=== PATIENT | female | born 1985 | race Caucasian/White ===

== ENCOUNTER 2019-07-19 09:12 | Inpatient (IN) | payer BC ==
[~2019-07-19] VITALS: Ht 292.1 cm; Wt 60.7 kg
[2019-07-19] MEDS ORDERED: LORazepam 1 MG tablet PO PRN (10:30)
[2019-07-19] MEDS ORDERED: acetaminophen 325mg tablet PO PRN ×2 (10:30)
[2019-07-19] MEDS ORDERED: loperamide 2mg capsule PO PRN (10:30)
[2019-07-19] MEDS ORDERED: mag hydrox/Alum hydrox/simeth 30ml oral suspension PO PRN (10:30)
[2019-07-19] MEDS ORDERED: magnesium hydroxide 30ml (MOM) UD suspension PO PRN (10:30)
[2019-07-19] MEDS ORDERED: ZOLP5TAB8 PO (10:54)
[2019-07-19] MEDS ORDERED: TRAZ-251 PO (10:54)
[2019-07-19] MEDS ORDERED: CITA20TA28 PO (10:54)
[2019-07-19] MEDS ORDERED: zolpidem 5mg tablet PO PRN (11:40)
--- NOTE | 2019-07-19 11:50 | NUR ---
Admission note: Pt admitted to [facility] for behavioral health on a 5150 for DTS at [address] [facility] in [facility]. . Pt was on the way from home in [facility] to [place] when pt threatened to jump out of the car. Pt was then transported via ambulance and pt again threatened to jump out of the ambulance. Pt accepted by Dr Reyes and pt made it here without jumping from vehicle. Pt had a baby one year ago and has been diagnosed with post depression. Pt also diagnosed with PTSD. Pt made a statement "I want to . Please kill me." Pt has been religiously preoccupied and upon arrival states she wants to go to [place]. Pt had not slept for 5 days at home but did sleep at [facility]'s ER after a B52.
[2019-07-19 12:30] VITALS: BP 129/83
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
[2019-07-19 20:00] VITALS: BP 132/84
[2019-07-19] MEDS ORDERED: traZODone 50mg tablet PO SCH (21:00)
--- NOTE | 2019-07-19 23:53 | NUR ---
Nursing Progress Note: Legal hold:5150 Client on involuntary status for DTS Report received from Rigoberto RICHARDSON with use of SBAR. Why are they here: [facility] for DTS from [facility] in [facility]. . Pt was on the way from home in [place] to [place] when pt threatened to jump out of the car. Pt was then transported via ambulance and pt again threatened to jump out of the ambulance. Pt made it here without jumping from vehicle. Pt had a baby one year ago and has been diagnosed with post depression. Pt also diagnosed with PTSD. Pt made a statement "I want to . Please kill me." Pt has been religiously preoccupied and upon arrival states she wants to go to [place]. Pt had not slept for 5 days at home but did sleep at [facility]'s ER after a B52. Assessment What has happened this shift:Pt in bed asleep at start of shift. Pt's Father came to visit. Pt and father in group room talking and smiling. Spent probably half of an hour in prayer at times holding hands. 1:1 pt speech very soft, she is guarded at times. Pt answers many questions with I don't remember. She asked when she will be able to go home and may be minimizing symptoms because she wants to go home. Denies SI. Pt has long history of anxiety and depression. She said she was obtained treatment and medications for the first time after the of her now 13 year old daughter triggered post depression. Pt believes stopping breast feeding her 18 month old daughter triggered this episode. S/I, H/I: denies A/VH: Denies at this time pt reports hearing voices before her admit Sleep: Pt sleeping at this time ADL's: Independent Group attendance: NA Were meds taken: Yes Any med S/E Mental Status Exam Appearance: Young attractive well groomed Eye contact: fair Behavior: cooperative Speech:normal rate low volume Mood: Pt denied depression Affect: depressed Thought process: Linear Thought Content: wants to go home Cognition:good Insight: poor Judgment: poor Interventions PRN's used: Ambien Therapeutic interventions: 1:1 assessment, medication administration/monitoring/education, active listening, therapeutic conversation with positive reinforcement, Q 15min safety checks. Restraints/seclusion/emergency medication: N/A Justification of Continued Inpatient Treatment: Continued therapeutic support and medication management needed to provide stabilization, prevent decompensation, and improve coping mechanisms decreasing risk to patient and re-admittance. Patient has a home where she lives with her and children
[2019-07-20 07:00] VITALS: BP 122/80
[2019-07-20] MEDS ORDERED: citalopram 20mg tablet PO SCH (08:00)
--- NOTE | 2019-07-20 13:23 | NUR ---
PHONE CALL TO Attempted to reach Ct's (release on file), Cy (ph# [phone]), to gather additional information. He was not home and apparently does not have a cell #. ZENOBIA Kenney
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
[2019-07-20 14:54] LABS: CHOLESTEROL 132 MG/DL (0-200); HDL CHOLESTEROL 67 MG/DL (35-60); LDL CHOLESTEROL 49 MG/DL (50-100); TRIGLYCERIDES 61 MG/DL (20-135)
--- NOTE | 2019-07-20 15:41 | NUR ---
Nursing Progress Note: DEANDRE Legal hold:5150 Client on involuntary status for DTS Report received from DYLAN Yo with use of SBAR. Why are they here: Pt admitted to [facility] for behavioral health on a 5150 for DTS from [facility] in [facility]. . Pt was on the way from home in [place] to [place] when pt threatened to jump out of the car. Pt was then transported via ambulance and pt again threatened to jump out of the ambulance. Pt made it here without jumping from vehicle. Pt had a baby one year ago and has been diagnosed with post depression. Pt also diagnosed with PTSD. Pt made a statement "I want to . Please kill me." Pt has been religiously preoccupied and upon arrival states she wants to go to [place]. Pt had not slept for 5 days at home but did sleep at [facility]'s ER after a B52. Assessment What has happened this shift: Pt in bed asleep at start of shift. Pt's Father came to AM visit. 1:1 pt speech soft and she is guarded during questioning. Denies SI but does endorse depression and anxiety. She reports her anxiety is 8/10 out of a 1-10 scoring system. Pt has long history of anxiety and depression. Pt reports that she has taken Celexa in the past and that it worked well for her. She denies any SEs to medications at this time. Reports her last BM was this morning. Pt isolates to her room a majority of the day, at times is found reading her Bible. S/I, H/I: denies A/VH: denies at this time Sleep: 8.5hrs NOC ADL's: Independent Group attendance: Were meds taken: Yes Any med S/E Mental Status Exam Appearance: Well groomed, green scrubs Eye contact: Direct Behavior: cooperative Speech: normal rate, soft, normal rhythm Mood: endorses depression and anxiety Affect: depressed Thought process: Linear Thought Content: question oriented Cognition: A & O X4 Insight: poor Judgment: poor Interventions PRN's used: Therapeutic interventions: 1:1 assessment, medication administration/monitoring/education, active listening, therapeutic conversation with positive reinforcement, Q 15min safety checks. Restraints/seclusion/emergency medication: N/A Justification of Continued Inpatient Treatment: Continued therapeutic support and medication management needed to provide stabilization, prevent decompensation, and improve coping mechanisms decreasing risk to patient and re-admittance. Patient has a home where she lives with her and children.
[2019-07-20 20:00] VITALS: BP 127/81
[2019-07-20] MEDS: docusate sod 100mg capsule PO SCH (20:41)
[2019-07-20] MEDS: traZODone 50mg tablet PO SCH (20:41)
--- NOTE | 2019-07-20 22:21 | NUR ---
Nursing Progress Note: Legal hold: 5150 Exp 07/22 @ 1105 Client on involuntary status for DTS Report received from CARMELO Franklin with use of SBAR. Why are they here: Pt admitted to [facility] for behavioral health on a 5150 for DTS from [facility] in [facility]. . Pt was on the way from home in [place] to [place] when pt threatened to jump out of the car. Pt was then transported via ambulance and pt again threatened to jump out of the ambulance. Pt made it here without jumping from vehicle. Pt had a baby one year ago and has been diagnosed with post depression. Pt also diagnosed with PTSD. Pt made a statement "I want to . Please kill me." Pt has been religiously preoccupied and upon arrival states she wants to go to [place]. Pt had not slept for 5 days at home but did sleep at [facility]'s ER after a B52. Assessment What has happened this shift: Patient sitting in group room reading a book at shift change. This information writer introduces self and establishes rapport. Pt is guarded and it is difficult to strike up conversation. Pt answers RN's questions, but doesn't elaborate. When asked how patient is feeling pt reports "I am feeling a little anxious." Reports 12/28. Pt refused PRN. Pt relates her incident to "Post depression." Pt states she had with her first child too." Pt states "I am feeling a lot better then when I first came in." Pt presents with a flat affect, no emotion shown during conversation. Pt's father came into visit and states "It was a good visit." Pt reports she has a good relationship with him. S/I, H/I: Pt denies, none observed. A/VH: Pt denies, none observed. Sleep: Currently sleeping. Trazadone 100mg administered. Refer to Sleep Assessment for total hours. 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 Were meds taken: Took medications without incident. Any med S/E: None reported or observed. Mental Status Exam Appearance: Well groomed, wearing own clothes Eye contact: Good Behavior: Cooperative, guarded, anxious Speech: Soft, audible, quiet Mood: "I feel a lot better than when I came in." Affect: Blunted Thought process: Linear Thought Content: Pt answered RN questions only Cognition: A & O X4 Insight: Poor Judgment: Poor Interventions PRN's used: None Therapeutic interventions: 1:1 assessment, medication administration/monitoring/education, active listening, therapeutic conversation with positive reinforcement, Q 15min safety checks. Restraints/seclusion/emergency medication: N/A Justification of Continued Inpatient Treatment: Continued therapeutic support and medication management needed to provide stabilization, prevent decompensation, and improve coping mechanisms decreasing risk to patient and re-admittance. Patient has a home where she lives with her and children.
[2019-07-21] MEDS: citalopram 20mg tablet PO SCH (07:48)
[2019-07-21] MEDS: docusate sod 100mg capsule PO SCH ×2 (07:48→20:00)
[2019-07-21 08:17] VITALS: BP 106/70
--- NOTE | 2019-07-21 14:52 | NUR ---
Nursing Progress Note: DEANDRE Legal hold:5150 Client on involuntary status for DTS Report received from DYLAN Yo with use of SBAR. Why are they here: Pt admitted to [facility] for behavioral health on a 5150 for DTS from [facility] in [facility]. . Pt was on the way from home in [place] to [place] when pt threatened to jump out of the car. Pt was then transported via ambulance and pt again threatened to jump out of the ambulance. Pt made it here without jumping from vehicle. Pt had a baby one year ago and has been diagnosed with post depression. Pt also diagnosed with PTSD. Pt made a statement "I want to . Please kill me." Pt has been religiously preoccupied and upon arrival states she wants to go to [place]. Pt had not slept for 5 days at home but did sleep at [facility]'s ER after a B52. Assessment What has happened this shift: Pt in bed asleep at start of shift. Pt's Father came to AM visit. 1:1 pt speech soft and she appears more bright today. She reports feeling better today. Denies SI but does endorse depression and anxiety. She reports her anxiety is 6/10 out of a 1-10 scoring system and 2/10 for depression. Pt has long history of anxiety and depression. Pt reports that she feels the Celexa is working well. She denies any SEs to medications at this time. Pt isolates to her room a majority of the day, at times is found reading her Bible or uatsdin book. S/I, H/I: denies A/VH: denies at this time Sleep: 8.5 hrs NOC ADL's: Independent Group attendance: yes Were meds taken: Yes Any med S/E Mental Status Exam Appearance: Well groomed, green scrubs Eye contact: Direct Behavior: cooperative Speech: normal rate, soft, normal rhythm Mood: endorses depression and anxiety Affect: depressed Thought process: Linear Thought Content: question oriented Cognition: A & O X4 Insight: poor Judgment: poor Interventions PRN's used: Therapeutic interventions: 1:1 assessment, medication administration/monitoring/education, active listening, therapeutic conversation with positive reinforcement, Q 15min safety checks. Restraints/seclusion/emergency medication: N/A Justification of Continued Inpatient Treatment: Continued therapeutic support and medication management needed to provide stabilization, prevent decompensation, and improve coping mechanisms decreasing risk to patient and re-admittance. Patient has a home where she lives with her and children.
[2019-07-21 20:00] VITALS: BP 106/73
[2019-07-21] MEDS: traZODone 50mg tablet PO SCH (21:00)
[2019-07-21] MEDS: hydrOXYzine 25 MG tablet PO PRN (23:51)
--- NOTE | 2019-07-22 01:13 | NUR ---
Nursing Progress Note: Legal hold: 5150 Exp 07/22 @ 1105 Client on involuntary status for DTS Report received from CARMELO Espinoza with use of SBAR. Why are they here: Pt admitted to [facility] for behavioral health on a 5150 for DTS from [facility] in [facility]. . Pt was on the way from home in [place] to [place] when pt threatened to jump out of the car. Pt was then transported via ambulance and pt again threatened to jump out of the ambulance. Pt made it here without jumping from vehicle. Pt had a baby one year ago and has been diagnosed with post depression. Pt also diagnosed with PTSD. Pt made a statement "I want to . Please kill me." Pt has been religiously preoccupied and upon arrival states she wants to go to [place]. Pt had not slept for 5 days at home but did sleep at [facility]'s ER after a B52. Assessment What has happened this shift: Patient quietly sitting in group room at shift change reading her Bible. Pt reports she "is feeling better." Pt's affect is brighter then last night. Pt smiles during conversation. Pt states she may be discharged tomorrow when her 5150 is , but states "I may stay a little longer depending on how I feel." Pt is goal oriented and looking forward to seeing her children. Pt continues to report anxiety 5/10, but "getting better." Pt retired to be around 2100 after HS med pass. Pt woke up around 2345 stating she "woke up feeling anxious" and having trouble falling back to sleep. PRN Atarax was administered. Reassessed pt around 0030, pt sleeping comfortably, rr even and unlabored. S/I, H/I: Pt denies, none observed. A/VH: Pt denies, none observed. Sleep: Currently sleeping. Trazadone 100mg administered. Refer to Sleep Assessment for total hours. 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 Were meds taken: Took medications without issue. Any med S/E: None reported or observed. Mental Status Exam Appearance: Well groomed, wearing green unit scrubs. Eye contact: Good Behavior: Cooperative, guarded, slightly anxious Speech: Soft, audible, quiet Mood: "I feel a lot better than when I came in." Affect: A little brighter, occasional smiles. Thought process: Linear Thought Content: Feeling better Cognition: A & O X4 Insight: Fair Judgment: Fair Interventions PRN's used: None Therapeutic interventions: 1:1 assessment, medication administration/monitoring/education, active listening, therapeutic conversation with positive reinforcement, Q 15min safety checks. Restraints/seclusion/emergency medication: N/A Justification of Continued Inpatient Treatment: Continued therapeutic support and medication management needed to provide stabilization, prevent decompensation, and improve coping mechanisms decreasing risk to patient and re-admittance. Patient has a home where she lives with her and children.
--- NOTE | 2019-07-22 08:17 | NUR ---
DISCHARGE PLANNING Ct reported her dad can pick her up upon discharge and drive her home. Called [facility] and scheduled Ct a follow up provider with RAUDEL Hernandez, on 07/27/19 at 7:45 am. ZENOBIA Kenney
[2019-07-22 08:27] VITALS: BP 109/69
[2019-07-22] MEDS: citalopram 20mg tablet PO SCH (08:40)
[2019-07-22] MEDS: docusate sod 100mg capsule PO SCH ×2 (08:40→20:50)
--- NOTE | 2019-07-22 17:45 | NUR ---
Nursing Progress Note: Legal hold: Voluntary. Client on involuntary status for DTS Report received from CARMELO Yo with use of SBAR. Why are they here: Pt admitted to [facility] for behavioral health on a 5150 for DTS from [facility] in [facility]. . Pt was on the way from home in [place] to [place] when pt threatened to jump out of the car. Pt was then transported via ambulance and pt again threatened to jump out of the ambulance. Pt made it here without jumping from vehicle. Pt had a baby one year ago and has been diagnosed with post depression. Pt also diagnosed with PTSD. Pt made a statement "I want to . Please kill me." Pt has been religiously preoccupied and upon arrival states she wants to go to [place]. Pt had not slept for 5 days at home but did sleep at [facility]'s ER after a B52. Assessment What has happened this shift: Pt. asleep at start of shift. Pt. awake for breakfast and medications. Pt. ate all meals in community room and took all medications. Pt. appears depressed. Pt. denies SI/HI, A/V hallucinations. Pt. seen socializing with peers. Pt. reports she feels like she is getting better but feels like she needs to stay longer. Pt. reports she feels depressed about being away from her children. Pt. reports depression 01/27. Pt. reports that she had a suicide attempt 8 years ago after being placed on Prozac, pt. attempted by overdosing on Prozac. Pt. placed on a voluntary hold today. S/I, H/I: Pt denies A/VH: Pt denies Sleep: Pt. did not nap during day shift. ADL's: Independent Group attendance: Yes Were meds taken: Yes Any med S/E: None reported or observed. Mental Status Exam Appearance: Well groomed, wearing green unit scrubs. Eye contact: Good Behavior: Cooperative, guarded, withdrawn, social when approached Speech: Soft but audible Mood: better but continues to report depression. Affect: Brighter Thought process: Linear Thought Content: Concerned about children Cognition: A & O X4 Insight: Fair Judgment: Fair Interventions PRN's used: None Therapeutic interventions: 1:1 assessment, medication administration/monitoring/education, active listening, therapeutic conversation with positive reinforcement, Q 15min safety checks. Restraints/seclusion/emergency medication: N/A Justification of Continued Inpatient Treatment: Continued therapeutic support and medication management needed to provide stabilization, prevent decompensation, and improve coping mechanisms decreasing risk to patient and re-admittance. Patient has a home where she lives with her and children.
[2019-07-22 20:04] VITALS: BP 114/72
[2019-07-22] MEDS: traZODone 50mg tablet PO SCH (20:50)
--- NOTE | 2019-07-22 21:56 | NUR ---
Nursing Progress Note: Legal hold: Voluntary Client on voluntary status for DTS Report received from CARMELO Espinoza with use of SBAR. Why are they here: Pt admitted to [place] for behavioral health on a 5150 for DTS from [facility] in [facility]. . Pt was on the way from home in [place] to [place] when pt threatened to jump out of the car. Pt was then transported via ambulance and pt again threatened to jump out of the ambulance. Pt made it here without jumping from vehicle. Pt had a baby one year ago and has been diagnosed with post depression. Pt also diagnosed with PTSD. Pt made a statement "I want to . Please kill me." Pt has been religiously preoccupied and upon arrival states she wants to go to [place]. Pt had not slept for 5 days at home but did sleep at [facility]'s ER after a B52. Assessment What has happened this shift: Pt observed sitting in group room reading a book. Pt isolates to self. Pt's affect is improving each shift. Pt states "I feel more anxious then depressed." Reports anxiety 5/10. Pt wanted to wait for a PRN and took her HS medications instead. Will continue to monitor. Pt went voluntary status today, pt feels she is ready to go home, but feels she needs a couple of more days. Pt reports "feeling much better than when I first came in, but not as good as I could." Explained to pt it takes time for medication to build up in her system. Educated pt on the importance medication compliance after discharge. Pt misses her children. . S/I, H/I: Pt denies, none observed. A/VH: Pt denies, none observed. Sleep: Currently sleeping. Trazadone 100mg administered. Refer to Sleep Assessment for total hours. 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 Were meds taken: Took medications without issue. Any med S/E: None reported or observed. Mental Status Exam Appearance: Well groomed, wearing green unit scrubs. Eye contact: Good Behavior: Cooperative, guarded, slightly anxious Speech: Soft, audible, quiet Mood: "I feel a lot better than when I came in." Affect: Bright with occasional smiles. Thought process: Linear Thought Content: Missing her children Cognition: A & O X4 Insight: Fair Judgment: Fair Interventions PRN's used: None as of this writing. Therapeutic interventions: 1:1 assessment, medication administration/monitoring/education, active listening, therapeutic conversation with positive reinforcement, Q 15min safety checks. Restraints/seclusion/emergency medication: N/A Justification of Continued Inpatient Treatment: Continued therapeutic support and medication management needed to provide stabilization, prevent decompensation, and improve coping mechanisms decreasing risk to patient and re-admittance. Patient has a home where she lives with her and children. Addendum: 07/23/19 at 0312 by Cris Cast RN Pt woke around 2230 and requested PRN Atarax, pt woke feeling anxious. Administered with effect.
[2019-07-22] MEDS: hydrOXYzine 25 MG tablet PO PRN (22:24)
[2019-07-23 08:00] VITALS: BP 123/76
[2019-07-23] MEDS: docusate sod 100mg capsule PO SCH ×2 (08:24→21:16)
[2019-07-23] MEDS: citalopram 20mg tablet PO SCH (08:24)
--- NOTE | 2019-07-23 12:08 | NUR ---
Initial: Pt admit with psychosis. Pt on regular diet documented with average 75-100% PO intake meeting nutrient needs. LBM 07/21, receiving routine bowel care. No nutrition diagnosis at this time. Will continue to follow. Recommendations: 1) Continue regular diet 2) Routine bowel care 3) Weekly wts Addendum: 07/23/19 at [address] Amended: Links added.
--- NOTE | 2019-07-23 17:15 | NUR ---
Nursing Progress Note: Legal hold: Voluntary. Client on involuntary status for DTS Report received from CARMELO Lynch with use of SBAR. Why are they here: Pt admitted to [place] for behavioral health on a 5150 for DTS from [facility] in [facility]. . Pt was on the way from home in [place] to [place] when pt threatened to jump out of the car. Pt was then transported via ambulance and pt again threatened to jump out of the ambulance. Pt made it here without jumping from vehicle. Pt had a baby one year ago and has been diagnosed with post depression. Pt also diagnosed with PTSD. Pt made a statement "I want to . Please kill me." Pt has been religiously preoccupied and upon arrival states she wants to go to [place]. Pt had not slept for 5 days at home but did sleep at [facility]'s ER after a B52. Assessment What has happened this shift: Pt. asleep at start of shift. Pt. awake for breakfast and medications. Pt. ate all meals in community room and took all medications. 1:1 done at bedside. Pt. reports feeling more depressed today. Pt. asks, "what else can I do to help my depression". RN discussed benefits of therapy and pt. report she does not have a therapist at home but will look into it. Pt. denies SI/HI, A/V hallucinations. Pt. is social with other patients and staff. S/I, H/I: denies A/VH: denies Sleep: Pt. did not nap during day shift. ADL's: Independent Group attendance: Yes Were meds taken: Yes Any med S/E: None reported or observed. Mental Status Exam Appearance: Well groomed, wearing green unit scrubs and sweatshirt. Eye contact: Good Behavior: Cooperative, guarded, social when approached Speech: Soft, normal rate and rhythm. Mood: Reports increased depression today. Affect: Brighter Thought process: Linear Thought Content: Concerned about children Cognition: A & O X4 Insight: Fair Judgment: Fair Interventions PRN's used: None Therapeutic interventions: 1:1 assessment, medication administration/monitoring/education, active listening, therapeutic conversation with positive reinforcement, Q 15min safety checks. Restraints/seclusion/emergency medication: N/A Justification of Continued Inpatient Treatment: Continued therapeutic support and medication management needed to provide stabilization, prevent decompensation, and improve coping mechanisms decreasing risk to patient and re-admittance. Patient has a home where she lives with her and children.
[2019-07-23 19:00] VITALS: BP 128/79
[2019-07-23] MEDS ORDERED: traZODone 50mg tablet PO SCH (21:00)
--- NOTE | 2019-07-23 22:22 | NUR ---
Nursing Progress Note: Legal hold: Voluntary Client on voluntary DTS Report received from nurse with use of SBAR: CARMELO Bailey Why are they here: Pt admitted to [place] for behavioral health on a 5150 for DTS from [facility] in [facility]. . Pt was on the way from home in [place] to [place] when she threatened to jump out of the car. Pt was then transported via ambulance and she again threatened to jump out of the ambulance. Pt had a baby one year ago and has been diagnosed with post depression. She is also diagnosed with PTSD. Pt made a statement "I want to . Please kill me." She has been religiously preoccupied and upon arrival states she wants to go to [place]. Pt had not slept for 5 days at home. Assessment What has happened this shift: Pt. up sitting in the Group Room watching TV with others at the beginning of the shift, this expert medical writer introduces self and establishes rapport. Pt. presents as cooperative and pleasant, however is somewhat guarded and withdrawn. Pulse is initially elevated, but pt. denies any anxiety at this time, rechecked and was WNL. 1:1 completed later at bedside, pt. denies any S/I, PANG, and no delusional statements made. She does appear to continue to be somewhat religiously focused, and sits reading her bible in her room. When questioned by this expert medical writer, pt. admits to some lingering depression, however states, "It's a lot better, I feel like the medication is helping and being here has really helped." She reports that she feels ready to discharge tomorrow, plans to keep taking her medications, and follow-up with a psychiatry appointment on Friday at [facility]. Pt. also states, "Since I live out of town, I am also going to use the online therapy [facility] called [facility]." S/I, H/I: Denies A/VH: Denies, does not appear internally preoccupied Sleep: Pt. reports that she has some difficulty with sleep r/t awakening frequently. Scheduled HS dose of Trazodone increased and pt. voices content, will monitor. ADL's: Independent Group attendance: Pt. reports she has been attending groups Were meds taken: Yes Any med S/E: None Mental Status Exam Appearance: Neat and appropriately dressed Eye contact: Good Behavior: Cooperative and pleasant, however is somewhat guarded and withdrawn Speech: Soft, minimal and responds only to questions Mood: Pleasant Affect: Constricted Thought process: WNL, some poverty of thought Thought Content: Goal directed Cognition: A&O X4 Insight: Fair Judgment: Fair Interventions PRN's used: None Therapeutic interventions: Introduced self and established rapport, ensured contract for safety, maintained a safe and therapeutic environment, monitored behavior and need for interventions, provided clear and simple instructions, provided active listening, and maintained Q 15min safety checks. Restraints/seclusion/emergency medication: N/A Justification of Continued Inpatient Treatment: Pt. continues to require a safe and supportive environment. Per RAUDEL Neely, pt. will discharge tomorrow.
[2019-07-24 07:26] VITALS: BP 101/71
[2019-07-24] MEDS: citalopram 20mg tablet PO SCH (07:39)
[2019-07-24] MEDS: docusate sod 100mg capsule PO SCH (07:39)
[2019-07-24] MEDS ORDERED: TRAZ-251 PO (10:35)
[2019-07-24] MEDS ORDERED: CITA-124 PO (10:35)
== END 2019-07-24 12:00 | disposition home or self-care (01) | DRG 885 ==
LOC: ADULT MH 09:12
PROVIDERS: ADMIT Psychiatry & Neurology Psychiatry; ATTEND Psychiatry & Neurology Psychiatry
DX: F33.2 Major depressive disorder, recurrent severe without psychotic features (principal); R45.851 Suicidal ideations; F41.9 Anxiety disorder, unspecified; Z81.8 Family history of other mental and behavioral disorders; Z83.3 Family history of diabetes mellitus; Z82.49 Family history of ischemic heart disease and other diseases of the circulatory system
CPT/HCPCS: 36415; 80061; 83036; 84443; 87081; 99285; Z7610